=== PATIENT | female | born 1955 | race African-American/Black ===

== ENCOUNTER 2021-09-24 16:06 | Emergency (ER) | payer OTHER, SELFPAY ==
--- NOTE | ~2021-09-24 | CT_ITS ---
EXAMINATION: CT ABDOMEN AND PELVIS WITHOUT CONTRAST CLINICAL INFORMATION: Right upper quadrant pain . COMPARISON: Ultrasound earlier today. TECHNIQUE: Multidetector volumetric imaging was performed from the superior aspect of the liver through the pubic symphysis without contrast per request. Sagittal and coronal reformatted images were obtained on the technologist workstation. This CT examination was performed using dose optimization techniques as appropriate, variously including the following: *Automated exposure control *Adjustment of mA and/or kV according to patient size (this includes techniques or standardized protocols for targeted exams where dose is matched to indication/reason for exam; i.e. extremities or head) *Use of iterative reconstruction technique DLP: 788 mGy-cm. FINDINGS: LUNG BASES: The visualized lung bases are unremarkable. LIVER, GALLBLADDER, BILIARY TREE: The non-contrast liver is normal in size, shape, and attenuation. No focal hepatic lesion or biliary ductal dilatation is present. Gallbladder is likely extremely decompressed. I do not appreciate any pericholecystic inflammatory changes or fluid. PANCREAS: Unremarkable. SPLEEN: Unremarkable. ADRENAL GLANDS: Unremarkable. KIDNEYS AND URETERS: Small low-attenuation probable cyst in the posterior lateral midpole of the left kidney. Otherwise the kidneys are normal in size, shape, and attenuation. No hydronephrosis, hydroureter, or calculi seen. No perinephric stranding. BLADDER: Unremarkable. GASTROINTESTINAL TRACT: There is scattered colonic diverticulosis more so in the sigmoid colon. I do not appreciate any colonic wall thickening or pericolonic inflammatory change to suggest diverticulitis. Normal-appearing appendix in the right lower quadrant. Visualized small bowel unremarkable ABDOMINAL WALL: Fat-containing umbilical hernia LYMPHOVASCULAR STRUCTURES: Vascular calcification within the aorta iliac system.. PELVIC VISCERA: Not well-defined OSSEUS STRUCTURES: Mild multilevel degenerative changes in the lower spine CT/CT abdomen pelvis wo con IMPRESSION: Chronic appearing changes as described. I do not appreciate any acute intra-abdominal process..
--- NOTE | ~2021-09-24 | US_ITS ---
EXAMINATION: US ABDOMEN LIMITED CLINICAL INFORMATION: Right upper quadrant pain. Evaluate for cholecystitis. COMPARISON: None TECHNIQUE: Real-time imaging of the right upper quadrant abdominal viscera. Examination limited to the region of the gallbladder as per patient request. FINDINGS: LIVER: Partially visualized and grossly unremarkable. GALLBLADDER: Multiple gallstones. No significant gallbladder wall thickening or pericholecystic free fluid to suggest acute cholecystitis. COMMON BILE DUCT: Normal in caliber measuring 0.9 cm in diameter. FREE FLUID: None. US/US abdomen limited IMPRESSION: Cholelithiasis without gallbladder wall thickening or pericholecystic free fluid to suggest acute cholecystitis. Mild prominence of the common bile duct measuring up to 0.9 cm.
[2021-09-24 16:12] VITALS: BP 143/78; PULSE 76; RESP 18; TEMP 36.7; O2SAT 100; BMI 35.5
--- NOTE | 2021-09-24 18:40 | ED_ITS ---
HPI - Abdominal Pain General Chief Complaint: Abdominal Pain Stated Complaint: upper abd and back pain Time Seen by Provider: 09/24/21 18:39 Source: patient and family (Daughter) Mode of arrival: ambulatory Limitations: no limitations History of Present Illness HPI narrative: 66 years old female came in for evaluation of her abdominal pain. Symptoms started about 2 years ago pain is localized in the right upper quadrant abdominal area, pain in his intermittent in nature, pain is localized to the right upper quadrant area with no radiation, patient do not recall anything makes the pain worse, or anything make it better. No other associated symptoms, no loss of weight, nausea, no vomiting. Patient was seen by her PCP in the past for similar pain for unclear etiology. Patient never had abdominal surgery in the past. Related Data Allergies Allergy/AdvReac Type Severity Reaction Status Date / Time No Known Allergies Allergy Verified 09/24/21 16:16 Review of Systems Review of Systems All other systems are reviewed and are negative Constitutional: Reports as per HPI and Reports no additional constitutional complaints Eyes: Reports as per HPI and Reports no additional eye complaints Reports system reviewed and no additional complaints, except as documented Cardiovascular: Reports as per HPI and Reports no additional cardiovascular complaints Respiratory: Reports as per HPI and Reports no additional respiratory complaints Gastrointestinal: Reports as per HPI and Reports no additional gastrointestinal complaints Genitourinary: Reports no additional female genitourinary complaints Musculoskeletal: Reports no additional musculoskeletal complaints Skin/Breast: Reports system reviewed and no additional complaints, except as docu Psychiatric: Reports no additional psychiatric complaints Endocrine: Reports no additional endocrine complaints Hematologic/Lymphatic: Reports no additional hematologic/lymphatic complaints Allergic/Immunologic: Reports no additional allergic/immunologic complaints Reports system reviewed and no additional complaints, except as documented and Reports Abnormal speech present Physical Exam Vital Signs: Vital Signs: Last Vital Signs Temp 98.3 F 09/24/21 20:11 Pulse 78 09/24/21 20:11 Resp 18 09/24/21 20:11 BP 152/71 H 09/24/21 20:11 Pulse Ox 100 09/24/21 20:11 Body Mass Index 35.5 Vital signs have been reviewed as appeared to be correct. Blood pressure normal. Heart rate normal. Respiration rate normal. Temperature normal. Oxygen saturation normal. Appearance: Alert. Oriented X3. No acute distress. Head: Normal external exam. Normocephalic. Atraumatic. No [place] signs noted. No raccoon eyes noted Eyes: PERRLA. EOMI. Conjunctiva and sclera normal. Eyelids normal. ENT: TM's Normal. Pharynx normal. Uvula midline. Moist mucous membranes. No trismus noted. No drooling noted. No muffled voice noted. Neck: Normal inspection. Neck supple. FROM. No adenopathy. Thyroid Normal. No meningeal signs. No neck mass noted. CVS: Normal heart rate and rhythm. Heart sound normal. No murmurs noted. Pulses normal throughout. Respiratory: No respiratory distress. Painless inspiration. Breath sounds normal. No wheezes/rales/rhonchi noted. Chest nontender. No accessory muscle usage noted or decreased air movement noted. Abdomen: Soft and nontender. Bowel sounds normal in all 4 quadrants. No distention noted. No organomegaly noted. No visible injury noted. Back: No CVA tenderness. Full range of motion noted. Skin: Skin warm and dry. Normal skin color. Normal skin turgor. No rashes/lesions/lacerations noted. Extremities: No lower extremity edema. Extremities exhibit normal range of motion. Extremities nontender. Neuro: Oriented X 3. Cranial nerve exam: II-XII are grossly intact No motor deficit. No sensory deficit. Reflexes normal. Course Course Course Narrative: Assessment and plan. 66-year-old female came in for evaluation of right upper quadrant pain for 2 years, patient had an ultrasound which showed cholelithiasis, patient was instructed to follow up with the surgeon, stay away from fatty foods. Patient also have a mild chronic renal insufficiency. MDM - Abdominal Pain Medical Records Attestation: I reviewed the patient's medical records. Lab Data Attestation: I reviewed the patient's lab results. Result diagrams: 09/24/21 18:59 09/24/21 18:59 Labs: Lab Results 09/24/21 09/24/21 09/24/21 Range/Units 18:59 18:59 19:47 WBC 10.2 (4.8-10.8) X10*3/uL RBC 3.84 L (4.20-5.50) X10*6/uL Hgb 11.8 L (12.0-16.0) g/dl Hct 37.0 (37.0-47.0) % MCV 96.4 (80.0-98.0) fL MCH 30.7 (27.0-33.0) pg MCHC 31.9 (31.0-35.0) g/dl RDW 14.0 (11.0-16.0) % Plt Count 154 L (160-400) X10*3/uL MPV 11.1 (9.4-12.3) fL Immature Gran % (Auto) Cancelled Neut % (Auto) Cancelled Lymph % (Auto) Cancelled [place] % (Auto) Cancelled Eos % (Auto) Cancelled Baso % (Auto) Cancelled Lymph # (Auto) Cancelled [place] # (Auto) Cancelled Eos # (Auto) Cancelled Baso # (Auto) Cancelled Abs Immat Gran (auto) Cancelled Absolute Neuts (auto) Cancelled Absolute Nucleated RBC 0.000 (0.0-0.012) X10*3/uL Nucleated RBC % (auto) 0.0 (0.0-0.2) /100WBC Neutrophils % (Manual) 58 (45-73) % Band Neutrophils % 0 L (3-5) % Lymphocytes % (Manual) 35 (20-40) % Monocytes % (Manual) 4 (2-11) % Eosinophils % (Manual) 3 (0-4) % Abs Neuts (Manual) 5.9 (2.0-8.3) X10*3/uL Lymphocytes # (Manual) 3.6 (1.2-4.9) X10*3/uL Monocytes # (Manual) 0.4 (0.1-1.2) X10*3/uL Eosinophils # (Manual) 0.3 (0.0-0.4) X10*3/uL Toxic Vacuolation PRESENT Platelet Estimate SLIGHTLY DECREASED (NORMAL) Large Platelets PRESENT Plt Morphology Comment NOTED RBC Morphology NOTED [place] Cells 1+ (0-2) /OIF Schistocytes 1+ (0-2) /OIF Sodium 137 (135-145) mmol/L Potassium 5.0 (3.3-5.1) mmol/L Chloride 101 (96-108) mmol/L Carbon Dioxide 28 (22-29) mmol/L Anion Gap 13 (12-20) BUN 23 H (9-16) mg/dL Creatinine 1.57 H (0.5-1.4) mg/dL Estim Creat Clear Calc 42.0 Estimated GFR 33 Random Glucose 197 H (60-115) mg/dL Calcium 9.7 (8.4-10.2) mg/dL Total Bilirubin 0.3 (0.0-1.0) mg/dL AST 13 (5-31) U/L ALT 6 (0-31) U/L Alkaline Phosphatase 103 (39-117) U/L Total Protein 7.2 (6.5-8.0) g/dL Albumin 4.3 (3.5-5.0) g/dL Lipase 42 (8-78) U/L Urine Color YELLOW Urine Appearance CLEAR Urine pH 6.0 (5.0-8.0) Ur Specific [place] 1.010 (1.005-1.025) Urine Protein NEG (NEG-TRACE) MG/DL Urine Glucose (UA) NEG (NEG) MG/DL Urine Ketones NEG (NEG) MG/DL Urine Blood NEG (NEG) Urine Nitrite NEG (NEG) Ur Leukocyte Esterase NEG (NEG) Imaging Data US - abdomen: Radiologist's impression: Cholelithiasis without gallbladder wall thickening or pericholecystic free fluid to suggest acute cholecystitis. ? Mild prominence of the common bile duct measuring up to 0.[address] scan - abdomen: Radiologist's impression: Chronic appearing changes as described. I do not appreciate any acute intra-abdominal process.. ? Discharge Plan Discharge Clinical Impression: Abdominal pain, Cholelithiasis Patient Disposition: Home, Self-Care Instructions: Gallstones (ED), Biliary Colic (ED) Referrals: Rukhsana Dawson MD [Primary Care Provider] - 2 days Feliz Vidal MD [Physician] - 2 days [facility] Past Medical History Medical History Diabetes High cholesterol HTN (hypertension) Parkinsons disease Surgical History H/O section Social History Social History Advance Directives: No Advance Directives Information Provided: Yes
--- NOTE | 2021-09-24 19:01 | PC.NURSE ---
lab support service tech at bedside for labs.
[2021-09-24 19:04] VITALS: BP 149/62; PULSE 79; RESP 14; TEMP 36.7; O2SAT 96
[2021-09-24 19:06] LABS: Hemoglobin 11.8 g/dl (12.0-16.0); Mean Corpuscular HGB Conc 31.9 g/dl (31.0-35.0); Mean Corpuscular Hemoglobin 30.7 pg (27.0-33.0); Mean Corpuscular Volume 96.4 fL (80.0-98.0); Mean Platelet Volume 11.1 fL (9.4-12.3); Platelet Count 154 X10*3/uL (160-400); Red Blood Count 3.84 X10*6/uL (4.20-5.50)
[2021-09-24 19:12] LABS: WBC ABN SCTR FOR CBC 1
--- NOTE | 2021-09-24 19:31 | PC.NURSE ---
Pt off to U/S at this time. UA obtained and sent.
[2021-09-24 19:39] LABS: Band Neutrophils Percent 0 % (3-5); Eosinophils Percent Manual 3 % (0-4); Lymphocytes Percent Manual 35 % (20-40); Monocytes Percent Manual 4 % (2-11); Neutrophils Percent Manual 58 % (45-73); RBC Morphology NOTED
[2021-09-24 19:40] LABS: Large Platelet PRESENT; Platelet Estimate SLIGHTLY DECREASED (NORMAL); Platelet Morphology Comment NOTED
[2021-09-24 19:41] LABS: Burr Cells 1+ (0-2) /OIF; Schistocytes 1+ (0-2) /OIF; Toxic Vacuolation PRESENT
[2021-09-24 19:42] LABS: Eosinophils Absolute Manual 0.3 X10*3/uL (0.0-0.4); Lymphocytes Absolute Manual 3.6 X10*3/uL (1.2-4.9); Monocytes Absolute Manual 0.4 X10*3/uL (0.1-1.2); Neutrophils Absolute Manual 5.9 X10*3/uL (2.0-8.3); White Blood Count 10.2 X10*3/uL (4.8-10.8)
[2021-09-24 19:50] LABS: Alanine Aminotransferase 6 U/L (0-31); Albumin Level 4.3 g/dL (3.5-5.0); Alkaline Phosphatase 103 U/L (39-117); Anion Gap 13 (12-20); Aspartate Amino Transferase 13 U/L (5-31); Bilirubin Total 0.3 mg/dL (0.0-1.0); Blood Urea Nitrogen 23 mg/dL (9-16); Calcium 9.7 mg/dL (8.4-10.2); Carbon Dioxide 28 mmol/L (22-29); Chloride 101 mmol/L (96-108); Estimated Glomerular Filt Rate 33; Glucose Random 197 mg/dL (60-115); Lipase 42 U/L (8-78); Sodium 137 mmol/L (135-145); Total Protein 7.2 g/dL (6.5-8.0)
[2021-09-24 19:55] LABS: Appearance Urine CLEAR; Color Urine YELLOW; Glucose Urine UA NEG (NEG); Leukocyte Esterase Urine NEG (NEG); Nitrite Urine NEG (NEG); Urine Blood NEG (NEG); Urine Ketones NEG (NEG); Urine Protein NEG (NEG-TRACE)
[2021-09-24 20:11] VITALS: BP 152/71; PULSE 78; RESP 18; TEMP 36.8; O2SAT 100
== END 2021-09-24 20:46 | disposition home or self-care (01) ==
PROVIDERS: Emergency Provider Emergency Medicine; PCP Internal Medicine
DX: K80.20 Calculus of gallbladder without cholecystitis without obstruction (principal); R10.11 Right upper quadrant pain; E11.9 Type 2 diabetes mellitus without complications; I10 Essential (primary) hypertension; E78.5 Hyperlipidemia, unspecified; G20 Parkinson's disease
CPT/HCPCS: 36415; 74176; 76705; 80053; 81003; 83690; 85007; 85027; 99284

== ENCOUNTER → 2021-10-04 10:29 | Outpatient (BNVA) | payer OTHER, SELFPAY | PROVIDERS: PCP Internal Medicine; Visit Provider Surgery | DX: K80.20 Calculus of gallbladder without cholecystitis without obstruction (principal) ==

== ENCOUNTER 2022-01-14 08:59 | Day surgery (SDC) | payer OTHER, SELFPAY ==
[2021-12-24 09:50] VITALS: BMI 36.2
--- NOTE | 2022-01-03 14:25 | P.CONAN_ITS ---
HPI - Anesthesia Eval Consult details Narrative: 66yo F for Cholecystectomy Laparoscopic, Poss Open PCP cleared Cardiology cleared Eliquis for PAF/hx of CVA PMFSH Active Problems Active Problems: All Active Problems (Updated 12/24/21 @ 08:55 by Kaylan Mak RN) Gallstones (Acute) Past Medical History Medical History (Updated 12/24/21 @ 08:55 by Kaylan Mak RN) CVA (cerebral vascular accident) Diabetes Gallstones High cholesterol HTN (hypertension) Parkinsons disease Paroxysmal atrial fibrillation Surgical History Surgical History (Updated 12/24/21 @ 08:57 by Kaylan Mak RN) H/O section H/O colonoscopy History of esophagogastroduodenoscopy (EGD) Social History Social History Household Members Other:: lives w/daughter Are you a primary senior caregiver to a significant other at home: No Do you presently have visiting nurse or other home services: No Patient Tobacco Use Status: Never used Tobacco Meds Allergies Allergy/AdvReac Type Severity Reaction Status Date / Time sertraline [From Zoloft] Allergy Unknown Depression Verified 01/14/22 09:52 Home Medications Medication Instructions Recorded Confirmed Last Taken Type acetaminophen 325 mg tablet 325 mg PO QID PRN 10/04/21 12/24/21 Unknown History ammonium lactate 12 % topical cream 1 appl TOPICAL DAILY 10/04/21 12/24/21 Unknown History apixaban 5 mg tablet (Eliquis) 5 mg PO BID 10/04/21 12/24/21 12/31/21 History atorvastatin 40 mg tablet 40 mg PO DAILY 10/04/21 12/24/21 Unknown History calcium carbonate 600 mg-vitamin 2 cap PO DAILY 10/04/21 12/24/21 Unknown History D3 10 mcg (400 unit) capsule carbidopa 25 mg-levodopa 100 mg 1.5 tab PO QID tab 10/04/21 12/24/21 Unknown History tablet carvedilol 25 mg tablet 25 mg PO BID 10/04/21 12/24/21 Unknown History citalopram 20 mg tablet 20 mg PO DAILY 10/04/21 12/24/21 Unknown History diclofenac sodium 1.5 % topical 1 pkg TOPICAL BID 10/04/21 12/24/21 Unknown History drops-menthol 10 % roll-on combo pack docusate sodium 100 mg capsule 100 mg PO BID 10/04/21 12/24/21 Unknown History dulaglutide 1.5 mg/0.5 mL 1.5 mg SUBCUT QWEEK 10/04/21 01/14/22 01/13/22 History subcutaneous pen injector (Trulicity) duloxetine 60 mg capsule,delayed 60 mg PO DAILY 10/04/21 12/24/21 Unknown His tory release ferrous sulfate 325 mg (65 mg 325 mg PO DAILY 10/04/21 01/14/22 01/07/22 History iron) tablet fluticasone propionate 50 1 spray INTRANASAL DAILY 10/04/21 12/24/21 Unknown History mcg/actuation nasal spray,suspension (Allergy Relief (fluticasone)) gabapentin 400 mg capsule 400 mg PO BEDTIME 10/04/21 12/24/21 Unknown History insulin glargine 100 unit/mL (3 30 unit SUBCUT BEDTIME ml 10/04/21 01/14/22 01/13/22 21:00 History mL) subcutaneous pen (Lantus 30 units Solostar U-100 Insulin) insulin lispro 100 unit/mL 10 unit SUBCUT TID 10/04/21 01/14/22 01/13/22 14:00 History subcutaneous pen lactulose 10 gram/15 mL oral 15 ml PO DAILY 10/04/21 12/24/21 Unknown History solution lancets 28 gauge (FreeStyle 10/04/21 Unknown History Lancets) loratadine 10 mg tablet 10 mg PO DAILY 10/04/21 12/24/21 Unknown History losartan 100 mg tablet 100 mg PO DAILY 10/04/21 12/24/21 Unknown History methimazole 10 mg tablet 10 mg PO DAILY 10/04/21 12/24/21 Unknown History nifedipine 90 mg tablet,extended 90 mg PO DAILY 10/04/21 12/24/21 Unknown History release 24 hr omeprazole 20 mg capsule,delayed 20 mg PO DAILY 10/04/21 12/24/21 Unknown History release oxybutynin chloride 5 mg tablet 5 mg PO DAILY 10/04/21 12/24/21 Unknown History pen needle, diabetic 32 gauge x 10/04/21 Unknown History (BD Dina 2nd Gen Pen Needle) spironolactone 25 mg tablet 25 mg PO DAILY 10/04/21 12/24/21 Unknown History methimazole 5 mg tablet 5 mg PO DAILY 12/24/21 12/24/21 Unknown History Exam Exam Date and Time: January 03, 2022 1425 Height,Weight and Vital Signs: Height 5 ft 5 in Weight 98.883 kg Pertinent Lab Results Pertinent Lab Results: 10/2021 WBC 9.3 Hgb 11.1 (L) Hct 35.7 Plt 198 07/2021 Na 139 K4.9 Cl106 CO2 30 BUN 22 Creat 1.48 Narrative Narrative: EKG 11/2021 NSR ?LVH Cannot r/o septal infarct (unchanged from previous) Per cardiology clearance2020 stress test was unremarkable without any evidence of ischemia or infarct Assessment and Plan Assessment Anesthesia Assessment: Chart Reviewed
[2022-01-14] VITALS (18 sets, daily range): BP systolic 154–183; BP diastolic 64–86; PULSE 75–92; RESP 14–28; TEMP 36.4–36.8; O2SAT 94–100
--- NOTE | 2022-01-14 09:18 | P.CONAN_ITS ---
[facility] Active Problems Active Problems: All Active Problems (Updated 12/24/21 @ 08:55 by Kaylan Mak RN) Gallstones (Acute) Past Medical History Medical History (Updated 12/24/21 @ 08:55 by Kaylan Mak RN) CVA (cerebral vascular accident) Diabetes Gallstones High cholesterol HTN (hypertension) Parkinsons disease Paroxysmal atrial fibrillation Family History Family history of problems with anesthesia: No Surgical History Surgical History (Updated 12/24/21 @ 08:57 by Kaylan Mak RN) H/O section H/O colonoscopy History of esophagogastroduodenoscopy (EGD) History of Problems with Anesthesia: No Social History Social History Household Members Other:: lives w/daughter Are you a primary childbirth and infant care teacher to a significant other at home: No Do you presently have visiting nurse or other home services: No Patient Tobacco Use Status: Never used Tobacco Use of substances other than those prescribed or required for medical reasons: No Have you been hit, kicked, punched, or otherwise hurt by someone within the past year? If so, by whom?: No Are you DNR?: No Advance Directives Information Provided: Yes (brochure mailed) Advance Directives on File: No Recently lost weight without trying: No Eating poorly because of decreased appetite: No Nutrition Risks: No Nutritional Risk Meds Allergies Allergy/AdvReac Type Severity Reaction Status Date / Time sertraline [From Zoloft] Allergy Unknown Unknown Verified 10/04/21 10:58 Active Medications: Current Medications Acetaminophen (Ofirmev) 1,000 mg in 100 mls @ 400 mls/hr IV PREOP ONE Stop: 01/14/22 09:21 Lactated Ringer's (Lr) 1,000 mls @ 100 mls/hr IVCONT .Q10H [facility] Home Medications Medication Instructions Recorded Confirmed Last Taken Type acetaminophen 325 mg tablet 325 mg PO QID PRN 10/04/21 12/24/21 Unknown History ammonium lactate 12 % topical cream 1 appl TOPICAL DAILY 10/04/21 12/24/21 Unknown History apixaban 5 mg tablet (Eliquis) 5 mg PO BID 10/04/21 12/24/21 Unknown History atorvastatin 40 mg tablet 40 mg PO DAILY 10/04/21 12/24/21 Unknown History calcium carbonate 600 mg-vitamin 2 cap PO DAILY 10/04/21 12/24/21 Unknown History D3 10 mcg (400 unit) capsule carbidopa 25 mg-levodopa 100 mg 1.5 tab PO QID tab 10/04/21 12/24/21 Unknown History tablet carvedilol 25 mg tablet 25 mg PO BID 10/04/21 12/24/21 Unknown History citalopram 20 mg tablet 20 mg PO DAILY 10/04/21 12/24/21 Unknown History diclofenac sodium 1.5 % topical 1 pkg TOPICAL BID 10/04/21 12/24/21 Unknown History drops-menthol 10 % roll-on combo pack docusate sodium 100 mg capsule 100 mg PO BID 10/04/21 12/24/21 Unknown History dulaglutide 1.5 mg/0.5 mL 1.5 mg SUBCUT QWEEK 10/04/21 12/24/21 Unknown History subcutaneous pen injector (Trulicity) duloxetine 60 mg capsule,delayed 60 mg PO DAILY 10/04/21 12/24/21 Unknown History release ferrous sulfate 325 mg (65 mg 325 mg PO DAILY 10/04/21 12/24/21 Unknown History iron) tablet fluticasone propionate 50 1 spray INTRANASAL DAILY 10/04/21 12/24/21 Unknown History mcg/actuation nasal spray,suspension (Allergy Relief (fluticasone)) gabapentin 400 mg capsule 400 mg PO BEDTIME 10/04/21 12/24/21 Unknown History insulin glargine 100 unit/mL (3 30 unit SUBCUT BEDTIME ml 10/04/21 12/24/21 Unknown History mL) subcutaneous pen (Lantus Solostar U-100 Insulin) insulin lispro 100 unit/mL 10 unit SUBCUT TID 10/04/21 12/24/21 Unknown History subcutaneous pen lactulose 10 gram/15 mL oral 15 ml PO DAILY 10/04/21 12/24/21 Unknown History solution lancets 28 gauge (FreeStyle 10/04/21 Unknown History Lancets) loratadine 10 mg tablet 10 mg PO DAILY 10/04/21 12/24/21 Unknown History losartan 100 mg tablet 100 mg PO DAILY 10/04/21 12/24/21 Unknown History methimazole 10 mg tablet 10 mg PO DAILY 10/04/21 12/24/21 Unknown History nifedipine 90 mg tablet,extended 90 mg PO DAILY 10/04/21 12/24/21 Unknown History release 24 hr omeprazole 20 mg capsule,delayed 20 mg PO DAILY 10/04/21 12/24/21 Unknown History release oxybutynin chloride 5 mg tablet 5 mg PO DAILY 10/04/21 12/24/21 Unknown History pen needle, diabetic 32 gauge x 10/04/21 Unknown History (BD Dina 2nd Gen Pen Needle) spironolactone 25 mg tablet 25 mg PO DAILY 10/04/21 12/24/21 Unknown History methimazole 5 mg tablet 5 mg PO DAILY 12/24/21 12/24/21 Unknown History Exam Exam Date and Time: January 14, 2022 0918 Height,Weight and Vital Signs: Height 5 ft 5 in Weight 98.883 kg Airway Mallampati Class: III TM Dist: >3cm Neck ROM: Full Denture: Upper and Lower Assessment and Plan Assessment Anesthesia Assessment: Anesthesia Plan Discussed Final Anesthetic Review Family History of Problems with Anesthesia: No History of Problems with Anesthesia: No ASA Class: III Final Preanesthetic Review: No Changes in Pt Med Stat, Meds/Allgs Chart Reviewed, Consent Obtained/Reviewed and Anes Risks/Benef Reviewed Patient Risk: Intermediate Procedure Risk: Intermediate Anesthetic Plan Anesthetic Plan: GA Disposition: Standard PACU
[2022-01-14 09:53] LABS: Glucose, Whole Blood 139 mg/dL (60-115)
--- NOTE | 2022-01-14 10:19 | MHC.SHP ---
Pre-Procedural Eval Section A Date of Service: 01/14/22 Section B Chief Complaint: Gallstones Details of Present Illness: has had periodic right upper quadrant pain. He had an ultrasound and CAT scan showing gallstones without cholecystitis Relevant Family History (Specify if Yes): No Relevant Social History: None Present Medications: see Short Stay Collaborative assessment Medical History: Significant History ( hypertension, diabetes, Parkinson's disease) History of Previous Operations: No relevant previous surgery Allergies: Allergies Allergy/AdvReac Type Severity Reaction Status Date / Time sertraline [From Zoloft] Allergy Unknown Depression Verified 01/14/22 09:52 Review of Systems Sugical H&P ROS: Negative: Constitution, Cardiovascular, Respiratory, Neurological, Psychiatric, Hem-Onc, Allergic/Immunologic, Gastrointestinal, Genitourinary, Musculoskeletal, Integumentary, Endocrine and Eyes/Ears/Nose/Throat Exam Surgical H&P Exam: Normal: HEENT, Normal: Heart, Normal: Lungs, Normal: Extremities, Normal: Abdomen, Normal: Skin and Normal: Neurological Plan Diagnosis/Plan: Unchanged I have reviewed the history and physical and performed a pertinent physical examination on my patient. No changes have occurred unless specified.
[2022-01-14] MEDS: Lactated Ringers 1,000 ML 100 ML IVCONT (10:51)
--- NOTE | 2022-01-14 12:03 | P.OP_ITS ---
Operative Note Operative Note Date of Service: 01/14/22 Narrative: Preop diagnosis: symptomatic gallstones Postop diagnosis: Symptomatic gallstones Procedure: Laparoscopic cholecystectomy with primary repair of umbilical hernia Surgeon: Feliz Vidal MD certified physical therapist assistant: SCARLETT Seth The patient is a 66 year female who was referred to me for periodic right upper quadrant pain, CT of gallstones on ultrasound. In view of her symptoms, she wanted to proceed with cholecystectomy. She understood the technique of laparoscopic cholecystectomy and possible open cholecystectomy. She was aware of the risks, benefits, and alternatives. She was brought to the operating room. She was placed supine on the table under general anesthesia via endotracheal tube. The abdomen was prepped and draped in the usual sterile fashion. A surgical time-out was done. The patient received Cefotan 2 g IV preoperatively . Examination of abdomen showed a palpable hernia in the umbilicus. There appeared to be a 2 cm defect so I decided to go through this hernia. I made an umbilical incision using blade 15. This carried down with electrocautery through the full-thickness skin subcutaneous fat until was able to visualize the hernia. There was fat containing. The hernia was not adherent to the fascial defect so this was reduced easily. I was able to clearly define the fascial edges. The Chris port was therefore introduced through this hernia defect. we then used a 10mm 0 degree laparoscope with this port. With laparoscopic visualization, I proceeded to insert a 5/12 mm port in the epigastric area below the subcostal margin. The port introduced a small incision below the subcostal margin along the anterior axillary line and the midclavicular line. Graspers were placed through these working ports. The patient was placed in head-up and [id number] position The gallbladder was seen. This appeared to be contracted, relatively small- sized, and not inflamed. We were able of to apply a grasper at the fundus and this was used to retract the gallbladder cephalad. We were able to apply another grasper towards the pouch of the gallbladder to retract this laterally. At this point therefore the gallbladder was being retracted in cephalad and lateral fashion to put the area of the cystic duct on stretch. The stomach was markedly distended partially obscuring our view so we had to insert an NG tube to decompress this. This allowed us to have a better visualization of the entire gallbladder. With the gallbladder being put on stretch as above, I proceeded to gently dissect the peritoneum at the neck of the gallbladder with the [place] dissector. We proceeded with this gently until I was able to clearlysee the cystic duct. I was able to define the confluence of the cystic duct with the neck of the gallbladder. The cystic duct appeared to be short could actually see the common bile duct distal to this. We stayed away from this common bile duct. With dissection of the cystic duct, I was able to achieve a critical view of the hepatocystic triangle. The cystic artery was also clearly seen and there were no other tubular structures in this area. We therefore applied clips on the cystic duct with 2 clips being applied distally. The cystic duct was transected between clips with Endo scissors. We applied clips on the cystic artery as well and this was transected between clips. We traction on the gallbladder away from the liver bed, proceeded to divide across the hilum using the electrocautery spatula. I reached the interface of the gallbladder wall and the liver bed. I incised the peritoneum of the gallb ladder using the electrocautery spatula and developed this plane of dissection between the gallbladder wall and the liver bed using a combination of blunt dissection with the tip of the spatula with electrocautery itself. We continued to dissect all the the fundus. There was note of a little tear in the gallbladder wall from retraction in view of this very small size. There was minimal bile leakage from this tear. I completed this separation of the gallbladder from the liver bed. This was retrieved through an endobag through the epigastric incision. I reinserted all ports and re-insufflated. I examined the subhepatic space and there was no evidence of any bleeding or any bile leak. I irrigated a little bit and suction out the irrigant fluid. I examined all 4 quadrants and there was no other pathology or any bowel injury seen Once hemostasis was ensured, I then proceeded to desufflate the port sites. All ports under vision with the laparoscope. The umbilical port was removed last. Since there was a hernia on the umbilical incision, if repair this with a running Dexon 0 stitch. All skin incisions were then closed with Dexon 4-0 subcuticular running suture s. Steri-Strips and dressings were applied. All incisions were infiltrated with Marcaine 0.5% for postop analgesia. The procedure was then completed. The patient tolerated the procedure well. There were no complications noted. Initial and final counts of sponges instruments were correct. Estimated blood loss was about 20 cc . The patient was extubated without difficulty and transferred to the recovery room with stable vital signs.
[2022-01-14] MEDS: fentaNYL citrate/PF 100 MCG/2 ML VIAL 50 MCG IVPUSH ×4 (12:20→12:45)
[2022-01-14] MEDS: oxyCODONE HCl Immed Release 5 MG TABLET PO (12:40)
[2022-01-14] MEDS: fentaNYL citrate/PF 100 MCG/2 ML VIAL 25 MCG IVPUSH ×2 (13:00→13:05)
== END 2022-01-14 15:32 | disposition home or self-care (01) ==
PROVIDERS: PCP Internal Medicine; Visit Provider Surgery
PROC: 0FT44ZZ Resection of Gallbladder, Percutaneous Endoscopic Approach (ICD-10-PCS; CPT 47562; principal; 2022-01-14 11:00)
DX: K81.9 Cholecystitis, unspecified (principal); K42.9 Umbilical hernia without obstruction or gangrene; I69.934 Monoplegia of upper limb following unspecified cerebrovascular disease affecting left non-dominant side; I69.998 Other sequelae following unspecified cerebrovascular disease; G20 Parkinson's disease; I10 Essential (primary) hypertension; E11.9 Type 2 diabetes mellitus without complications; Z79.4 Long term (current) use of insulin; Z79.899 Other long term (current) drug therapy; I48.0 Paroxysmal atrial fibrillation; Z79.01 Long term (current) use of anticoagulants
CPT/HCPCS: 47562; 49652; 82947; 88304; J0131; J1100; J2250; J2405; J2550; J3010

== ENCOUNTER → 2022-01-31 13:53 | Outpatient (BNVA) | payer OTHER, SELFPAY | PROVIDERS: PCP Internal Medicine; Visit Provider Surgery | DX: Z48.815 Encounter for surgical aftercare following surgery on the digestive system (principal); Z90.49 Acquired absence of other specified parts of digestive tract | CPT/HCPCS: 99212 ==

== ENCOUNTER 2023-09-08 08:10 | Outpatient (AMB) | payer OTHER, SELFPAY ==
--- NOTE | 2023-09-08 08:16 | A.OFFVIS_ITS ---
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 She had a multiple strokes about 6 years ago but she recovered good. she started noticing tremors in left UE. she was seen by Dr. Lee and diagnosed with Parkinsons disease. Cognition- she has short term memory issues and word finding difficulty Sleep-vivid dreams, snoring ( sleep study was ok) disrupted sleep due to pain, talks and groans in sleep, screaming and yelling in sleep Mood-has depression and anxiety Motivated. Speech- softer, hoarse Saliva- drooling Handwriting- smaller and diffiuclty Using utensils- ahs difficulty Dressing, showers- needs help Turning in bed- difficult Gait- poor balance , has falls, freezing episode Hallucinations- none GI- nausea Severe constipation. Her diabetes is poorly controlled . SHe is not very compliant with medications. [facility] Medical History (Updated 09/08/23 @ 09:30 by Yuridia Wei MD) Coarse tremors Hepatic steatosis CKD (chronic kidney disease) Neuropathy Diabetic retinopathy Hyperthyroidism Paroxysmal atrial fibrillation CVA (cerebral vascular accident) Gallstones Parkinsons disease High cholesterol HTN (hypertension) Diabetes Surgical History History of umbilical hernia repair (~01/14/22) History of laparoscopic cholecystectomy (~01/14/22) History of esophagogastroduodenoscopy (EGD) H/O colonoscopy Social History Household Members Other:: lives w/daughter Are you a primary life care planner to a significant other at home: No Do you presently have visiting nurse or other home services: No Alcohol intake: never Patient Tobacco Use Status: Never used Tobacco Review of Systems Const Reports frequent falls and Reports weight gain Musc Reports abnormal gait Neuro Reports abnormal gait, Reports frequent falls and Reports tremor(s) Physical Exam Vital Signs: Last Vital Signs Pulse 64 09/08/23 08:25 BP 122/72 09/08/23 08:25 Pulse Ox 98 09/08/23 08:25 Oxygen Delivery Method Room Air 09/08/23 08:25 BMI result Body Mass Index 34.4 Const General: cooperative, no acute distress and anxious Nutritional Appearance: overweight Orientation/consciousness: patient oriented x3 Neuro Other: left UE moderate to high amplitude rest, postural and action tremors FFM and foot taps decreased L>R Intermittent tremors in her trunk Voice - normal Mildly decreased facial expression and blink No cog wheel rigidity. Gait- with cane erect posture, small steps off balance General: patient oriented x3, moves all extremities and no focal motor deficits Cranial nerves: Yes Bilaterally intact EOM present, Yes Nystagmus not present, Yes Normal facial strength present and Yes Midline tongue present Motor exam (neuro): 5/5 motor strength present throughout (poor effort) and Normal motor muscle tone present throughout Deep tendon reflexes (DTR's): Right triceps reflex intensity grade: 1+, Left triceps reflex intensity grade: 1+, Rt Biceps (C5, C6): 1+, Left biceps reflex intensity grade: 1+, Right brachioradialis reflex intensity grade: 1+, Left brachioradialis reflex intensity grade: 1+, Right patellar reflex intensity grade: 1+ and Left patellar reflex intensity grade: 1+ Coordination: [id number] test normal (tremors) Assessment & Plan Assessment & Plan (1) Coarse tremors: Comment: Parkinsonism, ? parkinsons disease, vascular Code(s): G25.2 - Other specified forms of tremor Plan I suggested she continue sinemet 25/100 bid Compliance stressed will check if she had a KARO scan to confirm Idiopathic parkinsons disease or order KARO scan Home PT Discussed about good diabetic control Orders: Referrals Visiting Nurse Association/Hospice Referral G20 - Parkinson's disease Coding Level of Care Code New Pt Level 4 (87212) Diagnoses Coarse tremors G25.2
[2023-09-08 08:25] VITALS: BP 122/72; PULSE 64; O2SAT 98; BMI 34.4
== END 2023-09-08 09:08 | disposition home or self-care (01) ==
PROVIDERS: Visit Provider Psychiatry & Neurology Neurology
DX: G25.2 Other specified forms of tremor (principal)
CPT/HCPCS: 99204

== ENCOUNTER → 2023-09-08 08:10 | Outpatient (BNVA) | payer OTHER, SELFPAY | PROVIDERS: Visit Provider Psychiatry & Neurology Neurology ==